=== PATIENT | male | born 1950 | race Caucasian/White ===

== ENCOUNTER 2020-06-01 21:56 | Emergency (ER) | payer BC, OTHER ==
--- NOTE | 2020-06-01 22:08 | PDOC ---
Rapid Medical Evaluation Chief Complaint: Syncope/Near Syncope Time Seen by Provider: 06/01/20 22:03 Medical Evaluation: Allergies Allergy/AdvReac Type Severity Reaction Status Date / Time No Known Allergies Allergy Verified 03/13/16 07:33 06/01/20 22:04 69 year old s/p syncope 3pm found by friend. patient does not recall the incident. patient is sent from urgent care for evaluation. patient c/o of neck pain Last Vital Signs Temp Pulse Resp BP Pulse Ox 97.8 F 81 20 147/67 97 06/01/20 22:05 06/01/20 22:05 06/01/20 22:05 06/01/20 22:05 06/01/20 22:05 PE; patient patient has a hematoma right forehead. A: headinjury; syncope P;: labs CT head c-spine 06/01/20 22:08 Discharge Disposition - Diagnosis Syncope and collapse Head injury Qualifiers: Encounter type: initial encounter Qualified Code(s): S09.90XA - Unspecified injury of head, initial encounter - Referrals - Patient Instructions - Post Discharge Activity
[2020-06-01 22:13] VITALS: BP 147/67; PULSE 81; TEMP 97.8
--- NOTE | 2020-06-01 22:36 | PDOC ---
History of Present Illness - General Chief Complaint: Syncope/Near Syncope Stated Complaint: FALL Time Seen by Provider: 06/01/20 22:03 History Source: Patient - History of Present Illness Initial Comments: 06/01/20 22:33 Pato Pelaez is a 69M with PMH HTN, HLD presenting with syncope. Patient works a building construction engineer in [place], around 3PM today passed out by laundry room in his building without warning or prodrome. Was feeling well prior, no recent illness or sx. Found by tenant after, unknown time down, had a bump on his forehead but was able to walk, no vision/hearing changes, went home, ate without N/V, went to sleep. Sent in by family at 10PM for further evaluation. Currently complains of neck/ Healthy lifestyle, exercises, denies any prior cardiac history or syncopal episodes. Takes anti-HTN and anti-HLD medications. NKDA. Denies alcohol/drug/tobacco use. Bilateral knee replacements. Past History - Medical History Allergies/Adverse Reactions: Allergies Allergy/AdvReac Type Severity Reaction Status Date / Time No Known Allergies Allergy Verified 03/13/16 07:33 Home Medications: Ambulatory Orders Oxycodone HCl/Acetaminophen [Percocet 5-325 mg Tablet -] 1 combo PO Q6H PRN #14 tablet MDD 6 03/13/16 Hypercholesterolemia: Yes - Immunization History Immunization Up to Date: No - Psycho-Social/Smoking History Smoking Status: No Smoking History: Never smoked Have you smoked in the past 12 months: No Number of Cigarettes Smoked Daily: 0 - Substance Abuse Hx (Audit-C & DAST Scrn) How often the patient has a drink containing alcohol: Never Score: In Men: 4 or > Positive; In Women: 3 or > Positive: 0 Screen Result (Pos requires Nsg. Audit-10AR): Negative Review of Systems - Review of Systems Able to Perform ROS?: Yes Constitutional: No: Symptoms Reported HEENTM: No: Recent change in vision, Double Vision, Ear Discharge, Nose Pain, Throat Swelling, Mouth Pain Respiratory: No: Cough, Shortness of Breath, Stridor, Productive cough Cardiac (ROS): Yes: Syncope. No: Chest Pain, Edema, Irregular Heart Rate, Lightheadedness ABD/GI: No: Constipated, Diarrhea, Nausea, Poor Appetite, Poor Fluid Intake, V omiting : No: Symptoms Reported Musculoskeletal: Yes: Neck Pain Integumentary: No: Symptoms Reported Neurological: Yes: Headache. No: Numbness, Paresthesia Endocrine: No: Symptoms Reported Hematologic/Lymphatic: No: Symptoms Reported All Other Systems: Reviewed and Negative *Physical Exam - Vital Signs Last Vital Signs Temp Pulse Resp BP Pulse Ox 97.8 F 81 20 147/67 97 06/01/20 22:05 06/01/20 22:05 06/01/20 22:05 06/01/20 22:05 06/01/20 22:05 - Physical Exam General Appearance: Yes: Nourished, Appropriately Dressed, Other (well- appearing, spry, jovial). No: Apparent Distress HEENT: positive: EOMI, AMERICO, Normal ENT Inspection, Normal Voice, Symmetrical, Pharynx Normal. negative: Photophobia, Scleral Icterus (R), Scleral Icterus (L), Tonsillar Exudate, Tonsillar Erythema, Nasal Congestion, Rhinorrhea, Sinus Tenderness, Hearing Decreased, Hearing Grossly Normal Neck: positive: Tender (R side posterior), Trachea midline, Normal Thyroid, Supple, Tender lateral, Other (no midline bony deformity). negative: Rigid, Decreased range of motion, Lymphadenopathy (R), Lymphadenopathy (L), Rigidity, Tender midline Respiratory/Chest: positive: Lungs Clear, Normal Breath Sounds. negative: Chest Tender, Respiratory Distress, Accessory Muscle Use, Crackles, Rales, Rhonchi, Stridor, Wheezing Cardiovascular: positive: Regular Rhythm, Regular Rate. negative: Edema, Murmur Gastrointestinal/Abdominal: positive: Normal Bowel Sounds, Flat, Soft. negative: Tender, Organomegaly, Pulsatile Mass, Increased Bowel Sounds, Guarding Musculoskeletal: positive: Normal Inspection. negative: CVA Tenderness, CVA Tenderness (R), CVA Tenderness (L), Decreased Range of Motion Extremity: positive: Normal Capillary Refill, Normal Inspection, Normal Range of Motion. negative: Tender, Pelvis Stable, Pedal Edema, Swelling Integumentary: positive: Normal Color, Dry, Warm Neurologic: positive: hot dip galvanizer II-XII NML intact, Fully Oriented, Alert, Normal Mood/Affect, Normal Response, Motor Strength 5/5, Finger to Nose (normal), Other (gait normal forwards and backwards, Romberg normal). negative: Numbness, Sensory Deficit Heart Score/ECG Review - History History: Moderately suspicious - Electrocardiogram EKG: Normal - Age Age: >/= 65 - Risk Factors Risk Factors Heart Score: Yes Hx Hypercholesterolemia, Yes Hx Hypertension Based on the list above the patient has:: 1-2 risk factors - Troponin Troponin: </= normal limit - Score Heart Score - Total: 4 ED Treatment Course - LABORATORY CBC & Chemistry Diagram: 06/01/20 23:20 06/01/20 23:20 Medical Decision Making - Medical Decision Making 06/02/20 01:05 Patient is an otherwise healthy 69M with PMH HTN, HLD here for unprovoked syncope and head injury. Patient not on AC, no prior cardiac history, no concerning neuro symptoms. VSS. Getting cardiac labs/CXR/CXR for eval cardiac syncope, as well as CT head and c-spine for eval fx or ICH. Orthostatic VS: - supine 148/77, HR 84 - standing 148/78, HR 96 Labs notable for: - CMP WNL - CBC WNL - trop negative CT head no acute pathology CT c-spine no acute fracture, but 2-3mm C4 on C5 subluxation. Dr. Garcia consulted with neurosurgery, does not recommend MRI given patient is completely asymptomatic, likely chronic issue, can be followed up electively if needed. ECG shows NSR with HR 60, QTc 410, no ERIC/D or TWI. Plan to admit to tele/obs given likely cardiac syncope, NRSG f/u. 06/02/20 01:43 Patient re-evaluated, feeling fine, exam unchanged. Recommended admission for syncope, but patient refuses. Discussed possible , paralysis, and need for cardiac evaluation, patient adamantly refuses to stay. Patient is competent for AMA, not intoxicated, no evidence of AMS, understands the risks and refuses to stay despite this. Given cardiology and NRSG f/u, AMA paperwork signed. Discharge - Discharge Information Problems reviewed: Yes Clinical Impression/Diagnosis: Syncope and collapse Head injury Qualifiers: Encounter type: initial encounter Qualified Code(s): S09.90XA - Unspecified injury of head, initial encounter Cervical subluxation Qualifiers: Encounter type: initial encounter Qualified Code(s): S13.100A - Subluxation of unspecified cervical vertebrae, initial encounter Condition: Stable Disposition: AGAINST MEDICAL ADVICE - Admission Yes - Follow up/Referral Referrals: Michela Villanueva [Primary Care Provider] - Theo Garcia MD [Staff Physician] - Osito Cortes MD [Staff Physician] - - Patient Discharge Instructions Patient Printed Discharge Instructions: DI for Syncope in Adults (Fainting) Additional Instructions: Today you were evaluated for a fall. Your labs are fine, but we wanted to keep you in the hospital because you passed out, but you refused. We have given you referrals to see a courtroom clerk and a neurosurgeron, please follow-up with them. Your CT scan shows you have a subluxation in your neck, and you need to see a neurosurgeon to make sure your injury does not get worse. If you experience worsening neck pain, numbness/tingling, become unable to walk, or have any other new or concerning symptoms, please return to the emergency room. - Post Discharge Activity
--- NOTE | 2020-06-01 23:06 | PDOC ---
Documentation entered by Cm Peace SCRIBE, acting as scribe for Renuka Venegas MD. Renuka Venegas MD: This documentation has been prepared by the [employer] grady Xhesika, SCRIBE, under my direction and personally reviewed by me in its entirety. I confirm that the documentation accurately reflects all work, treatment, procedures, and medical decision making performed by me. Attending Attestation - Resident Resident Name: YesicayessiTroy - ED Attending Attestation I have performed the following: I have examined & evaluated the patient, The case was reviewed & discussed with the resident, I agree w/resident's findings & plan, Exceptions are as noted - HPI HPI: 06/01/20 23:03 69 yo male was in the laundry room this afternoon and then found himself on the ground. His friend found him on the floor . He then Tonight his family asked about his rt frontal hematoma and he went to urgent care at [facility] and they sent him here 06/01/20 23:18 - Physicial Exam PE: 06/01/20 23:22 wnwd 69 yo male p/w rt forehead hematoma and sore neck since falling in the afternoon head 4 cm rt frontal hematoma neck para spinal soreness lungs cta b/l cvs [id number] abdomen no rebound extremities no deformities skin warm and dry neuro axox3,ambulatory - Medical Decision Making 06/01/20 23:39 imp: syncope plan: ct scan head and c spine,ekg, cardiac profile 06/02/20 00:42 ekg nsr @ [address] sacn head no acute intracranial pathology ct scan c spine: there is 2mm subluxation c4,C5 and we consulted Dr Sushila Garcia who said this is degenerative and not acute and does not have any recommendations for intervention 06/02/20 00:53 negative troponin 06/02/20 01:02 pt admitted for syncope work up 06/02/20 01:03 06/02/20 01:13 Discharge - Discharge Information Problems reviewed: Yes Clinical Impression/Diagnosis: Syncope and collapse Head injury Qualifiers: Encounter type: initial encounter Qualified Code(s): S09.90XA - Unspecified injury of head, initial encounter Cervical subluxation Qualifiers: Encounter type: initial encounter Qualified Code(s): S13.100A - Subluxation of unspecified cervical vertebrae, initial encounter Condition: Stable Disposition: AGAINST MEDICAL ADVICE - Follow up/Referral Referrals: Theo Garcia MD [Staff Physician] - Osito Cortes MD [Staff Physician] - Michela Villanueva [Primary Care Provider] - - Patient Discharge Instructions Patient Printed Discharge Instructions: DI for Syncope in Adults (Fainting) Additional Instructions: Today you were evaluated for a fall. Your labs are fine, but we wanted to keep you in the hospital because you passed out, but you refused. We have given you referrals to see a scientific illustrator and a neurosurgeron, please follow-up with them. Your CT scan shows you have a subluxation in your neck, and you need to see a neurosurgeon to make sure your injury does not get worse. If you experience worsening neck pain, numbness/tingling, become unable to walk, or have any other new or concerning symptoms, please return to the emergency room. - Post Discharge Activity
[2020-06-01 23:25] LABS: BASO % 1.1 % (0-2.0); EOS % 3.9 % (0-4.5); HEMATOCRIT 40.3 % (35.4-49); HEMOGLOBIN 13.3 GM/dL (11.7-16.9); LYMPH % 35.2 % (8-40); MCHC 33.1 g/dl (32.0-35.9); MEAN CELL VOLUME 90.7 fl (80-96); MEAN PLT VOLUME 7.4 fl (7.5-11.1); MONO % 8.5 % (3.8-10.2); NEUT % 51.3 % (42.8-82.8); PLATELET COUNT 289 K/MM3 (134-434); RBC 4.44 M/mm3 (4.00-5.60); RDW 14.7 % (11.9-15.9)
[2020-06-01 23:45] LABS: INR 0.89 (0.83-1.09); PROTHROMBIN TIME (PATIENT) 10.5 SEC (9.7-13.0)
[2020-06-01 23:47] LABS: ACTIVATED PTT 30.6 SECONDS (25.2-36.5)
[2020-06-01 23:50] LABS: ALBUMIN 3.5 g/dl (3.4-5.0); ALK PHOS 77 U/L (45-117); ANION GAP 8 MMOL/L (8-16); BILIRUBIN,TOTAL 0.2 mg/dL (0.2-1); BLOOD UREA NITROGEN 15.3 mg/dL (7-18); CALCIUM 8.9 mg/dL (8.5-10.1); CHLORIDE 108 mmol/L (98-107); CO2 26 mmol/L (21-32); GLUCOSE,RANDOM 122 mg/dL (74-106); MAGNESIUM 2.2 mg/dL (1.8-2.4); POTASSIUM 3.8 mmol/L (3.5-5.1); SGOT/AST 22 U/L (15-37); SGPT/ALT 35 U/L (13-61); SODIUM 142 mmol/L (136-145); TOT PROT 6.9 g/dl (6.4-8.2)
--- NOTE | 2020-06-02 09:18 | EKG ---
Test Reason : Blood Pressure : / mmHG Vent. Rate : 060 BPM Atrial Rate : 060 BPM P-R Int : 172 ms QRS Dur : 080 ms QT Int : 410 ms P-R-T Axes : 039 002 009 degrees QTc Int : 410 ms NORMAL SINUS RHYTHM NORMAL ECG WHEN COMPARED WITH ECG OF 13-MAR-2016 07:48, NO SIGNIFICANT CHANGE WAS FOUND Confirmed by MD PADMINI, ALISA ([id number]) on 06/02/2020 9:18:22 AM Referred By: Confirmed By:ALISA WASHINGTON MD
== END 2020-06-02 02:11 | disposition left against medical advice (07) ==
LOC: JER 21:56
DX: R55 Syncope and collapse (principal); S09.90XA Unspecified injury of head, initial encounter; S13.100A Subluxation of unspecified cervical vertebrae, initial encounter
CPT/HCPCS: 36415; 70450-TC; 71046-TC-FY; 72125-TC; 80053; 82550; 82553; 83735; 84484; 85025; 85610; 85730; 93005; 93010; 99285-25